=== PATIENT | male | born 1970 | race Caucasian/White ===

== ENCOUNTER 2020-03-26 09:30 | Outpatient (CLI) | payer BC ==
[2020-03-26] MEDS ORDERED: MUPIROCIN 2% CREAM 15 GM TUBE TP ONE (10:27)
[2020-03-26 11:36] LABS: BASOPHILS # (AUTO) 0.1 /CMM (0.0-0.2); BASOPHILS % (AUTO) 2.5 % (0.0-2.0); EOSINOPHILS % (AUTO) 3.3 % (0.0-6.0); HEMATOCRIT 39 % (39-51); HEMOGLOBIN 13.2 g/dL (13.5-17.5); LYMPHOCYTES # (AUTO) 1.4 /CMM (0.8-4.8); LYMPHOCYTES % (AUTO) 27.4 % (20.0-44.0); MEAN CORPUSCULAR HGB CONC 34 g/dl (31.0-36.0); MEAN CORPUSCULAR VOLUME 104 fL (80-96); MONOCYTES # (AUTO) 0.6 /CMM (0.1-1.30); MONOCYTES % (AUTO) 12.9 % (2.0-12.0); NEUTROPHILS # (AUTO) 2.7 /CMM (1.8-8.9); NEUTROPHILS % (AUTO) 53.9 % (43.0-81.0); PLATELET COUNT (AUTO) 408 /CMM (150-450); RED BLOOD CELL COUNT(AUTO) 3.78 MIL/uL (4.5-6.0)
[2020-03-26 11:46] LABS: C-REACTIVE PROTEIN 0.2 mg/dL (0.0-0.9)
[2020-03-26 15:55] LABS: ALBUMIN 4.2 g/dL (3.4-5.0)
== END 2020-03-26 23:59 | disposition home or self-care (01) ==
LOC: WOU 09:30
PROVIDERS: ATTEND Podiatrist Foot & Ankle Surgery
DX: L89.513 Pressure ulcer of right ankle, stage 3 (principal); G82.22 Paraplegia, incomplete; Z74.09 Other reduced mobility; Z79.899 Other long term (current) drug therapy
CPT/HCPCS: 11042; 36415; 73610; 73620; 82040; 85025; 85652; 86140; 87070; 87075; A6209; 87186-TC

== ENCOUNTER 2020-04-02 09:30 | Outpatient (CLI) | payer BC ==
[2020-04-02] MEDS ORDERED: GENTAMICIN 0.1% CREAM 15 GM TUBE ONE (10:16)
== END 2020-04-02 23:59 | disposition home or self-care (01) ==
LOC: WOU 09:30
PROVIDERS: ATTEND Podiatrist Foot & Ankle Surgery
DX: L89.513 Pressure ulcer of right ankle, stage 3 (principal); G82.22 Paraplegia, incomplete; Z74.09 Other reduced mobility; M21.371 Foot drop, right foot; Z79.899 Other long term (current) drug therapy
CPT/HCPCS: 11042

== ENCOUNTER 2020-04-09 09:35 | Outpatient (CLI) | payer BC | END 2020-04-09 23:59 | disposition home or self-care (01) | LOC: WOU 09:35 | PROVIDERS: ATTEND Podiatrist Foot & Ankle Surgery | DX: L89.513 Pressure ulcer of right ankle, stage 3 (principal); G82.22 Paraplegia, incomplete; M21.371 Foot drop, right foot; Z74.09 Other reduced mobility; Z79.899 Other long term (current) drug therapy | CPT/HCPCS: 11042 ==

== ENCOUNTER 2020-04-16 09:35 | Outpatient (CLI) | payer BC ==
[2020-04-16 10:51] LABS: BASOPHILS % (AUTO) 0.4 % (0.0-2.0); HEMATOCRIT 43 % (39-51); HEMOGLOBIN 14.5 g/dL (13.5-17.5); LYMPHOCYTES % (AUTO) 20.2 % (20.0-44.0); MEAN CORPUSCULAR HGB CONC 33 g/dl (31.0-36.0); MEAN CORPUSCULAR VOLUME 107 fL (80-96); MONOCYTES # (AUTO) 0.5 /CMM (0.1-1.30); MONOCYTES % (AUTO) 5.2 % (2.0-12.0); NEUTROPHILS # (AUTO) 3.5 /CMM (1.8-8.9); NEUTROPHILS % (AUTO) 36.3 % (43.0-81.0); PLATELET COUNT (AUTO) 453 /CMM (150-450); RED BLOOD CELL COUNT(AUTO) 4.05 MIL/uL (4.5-6.0); WHITE BLOOD COUNT (AUTO) 9.7 K/uL (4.3-11.0)
[2020-04-16 10:53] LABS: EOSINOPHILS % (AUTO) 37.9 % (0.0-6.0)
[2020-04-16 11:33] LABS: ALBUMIN 4.1 g/dL (3.4-5.0); CALCIUM, SERUM 8.9 mg/dL (8.5-10.1); CREATININE 0.6 mg/dL (0.6-1.3); POTASSIUM 3.8 mmol/L (3.5-5.1)
[2020-04-16 11:36] LABS: PREALBUMIN 32.2 MG/DL (18.0-35.7)
[2020-04-16 14:17] LABS: EOSINOPHILS % (MANUAL) 35 % (0-4); LYMPHOCYTES % (MANUAL) 19 % (16-48); MONOCYTES % (MANUAL) 2 % (0-11.0); NEUTROPHILS % (MANUAL) 44 (42-76)
== END 2020-04-16 23:59 | disposition home or self-care (01) ==
LOC: WOU 09:35
PROVIDERS: ATTEND Podiatrist Foot & Ankle Surgery
DX: L89.513 Pressure ulcer of right ankle, stage 3 (principal); G82.22 Paraplegia, incomplete; Z74.09 Other reduced mobility; M21.371 Foot drop, right foot; Z79.899 Other long term (current) drug therapy
CPT/HCPCS: 11042; 36415; 71045-TC; 80048-TC; 82040-TC; 84134-TC; 85025-TC; 85610-TC; 85730-TC

== ENCOUNTER 2020-04-18 13:10 | Outpatient (CLI) | payer BC | END 2020-04-18 23:59 | disposition home or self-care (01) | LOC: LAB 13:10 | PROVIDERS: ATTEND Podiatrist Foot & Ankle Surgery | DX: Z01.812 Encounter for preprocedural laboratory examination (principal); Z20.828 Contact with and (suspected) exposure to other viral communicable diseases; L89.513 Pressure ulcer of right ankle, stage 3 | CPT/HCPCS: C9803; U0003 ==

== ENCOUNTER 2020-04-23 06:38 | Day surgery (SDC) | payer BC ==
[2020-04-23] MEDS ORDERED: ANESTHESIA TRAY IN PYXIS 1 EA TRAY MC ONE (06:43)
[2020-04-23] MEDS ORDERED: MIDAZOLAM HCL 2 MG/2ML VIAL ONE (07:21)
[2020-04-23] MEDS ORDERED: FAMOTIDINE/PF INJ 20 MG/2 ML VIAL IV ONE (07:22)
[2020-04-23] MEDS ORDERED: FENTANYL PF 250MCG/5ML AMPUL ONE (07:22)
[2020-04-23] MEDS ORDERED: LIDOCAINE 1% INJ 50 ML MDV IJ ONE (07:45)
[2020-04-23] MEDS ORDERED: VANCOMYCIN 1 GM VIAL ONE (07:45)
[2020-04-23] MEDS ORDERED: BACITRACIN 50000 UNITS/VIAL ONE (07:46)
== END 2020-04-23 10:55 | disposition home or self-care (01) ==
LOC: DS 06:38
PROVIDERS: ATTEND Podiatrist Foot & Ankle Surgery
DX: T81.89XA Other complications of procedures, not elsewhere classified, initial encounter (principal); L89.513 Pressure ulcer of right ankle, stage 3; K21.9 Gastro-esophageal reflux disease without esophagitis; M21.371 Foot drop, right foot; L97.511 Non-pressure chronic ulcer of other part of right foot limited to breakdown of skin; G82.20 Paraplegia, unspecified
CPT/HCPCS: 27638; 87070; J0690; J2250; J2405; J2704; J2765; J3010; J3370; J3490 ×3; 88305-TC; 88311-TC; A6209; Q4110

== ENCOUNTER 2020-04-30 09:30 | Outpatient (CLI) | payer BC | END 2020-04-30 23:59 | disposition home or self-care (01) | LOC: WOU 09:30 | PROVIDERS: ATTEND Podiatrist Foot & Ankle Surgery | DX: Z48.817 Encounter for surgical aftercare following surgery on the skin and subcutaneous tissue (principal); G82.22 Paraplegia, incomplete; Z74.09 Other reduced mobility; M21.371 Foot drop, right foot; Z79.899 Other long term (current) drug therapy | CPT/HCPCS: G0463 ==

== ENCOUNTER 2020-05-07 09:35 | Outpatient (CLI) | payer BC | END 2020-05-07 23:59 | disposition home or self-care (01) | LOC: WOU 09:35 | PROVIDERS: ATTEND Podiatrist Foot & Ankle Surgery | DX: Z48.817 Encounter for surgical aftercare following surgery on the skin and subcutaneous tissue (principal); L03.115 Cellulitis of right lower limb; B95.2 Enterococcus as the cause of diseases classified elsewhere; G82.22 Paraplegia, incomplete; M21.371 Foot drop, right foot; Z79.899 Other long term (current) drug therapy | CPT/HCPCS: G0463 ==

== ENCOUNTER 2020-05-15 13:45 | Outpatient (CLI) | payer BC | END 2020-05-15 23:59 | disposition home or self-care (01) | LOC: WOU 13:45 | PROVIDERS: ATTEND Podiatrist Foot & Ankle Surgery | DX: L03.115 Cellulitis of right lower limb (principal); B95.2 Enterococcus as the cause of diseases classified elsewhere; G82.22 Paraplegia, incomplete; M21.371 Foot drop, right foot; Z74.09 Other reduced mobility; Z79.899 Other long term (current) drug therapy | CPT/HCPCS: G0463 ==

== ENCOUNTER 2020-05-21 10:20 | Outpatient (CLI) | payer BC | END 2020-05-21 23:59 | disposition home or self-care (01) | LOC: WOU 10:20 | PROVIDERS: ATTEND Podiatrist Foot & Ankle Surgery | DX: Z48.817 Encounter for surgical aftercare following surgery on the skin and subcutaneous tissue (principal); L03.115 Cellulitis of right lower limb; L89.513 Pressure ulcer of right ankle, stage 3; G82.22 Paraplegia, incomplete; Z74.09 Other reduced mobility; M21.371 Foot drop, right foot; Z79.899 Other long term (current) drug therapy | CPT/HCPCS: G0463 ==

== ENCOUNTER 2020-05-28 10:30 | Outpatient (CLI) | payer BC | END 2020-05-28 23:59 | disposition home or self-care (01) | LOC: WOU 10:30 | PROVIDERS: ATTEND Podiatrist Foot & Ankle Surgery | DX: Z09 Encounter for follow-up examination after completed treatment for conditions other than malignant neoplasm (principal); M21.371 Foot drop, right foot; G82.22 Paraplegia, incomplete; Z74.09 Other reduced mobility | CPT/HCPCS: G0463 ==

== ENCOUNTER 2020-06-11 10:15 | Outpatient (CLI) | payer BC ==
[2020-06-11] MEDS ORDERED: UREA 10% -AHA 4% CREAM 57 GM TUBE ONE (10:45)
== END 2020-06-11 23:59 | disposition home or self-care (01) ==
LOC: WOU 10:15
PROVIDERS: ATTEND Podiatrist Foot & Ankle Surgery
DX: Z48.817 Encounter for surgical aftercare following surgery on the skin and subcutaneous tissue (principal); G82.22 Paraplegia, incomplete; B35.3 Tinea pedis; L85.3 Xerosis cutis; M21.372 Foot drop, left foot; M21.371 Foot drop, right foot; Z79.899 Other long term (current) drug therapy
CPT/HCPCS: G0463

== ENCOUNTER 2020-07-30 09:30 | Outpatient (CLI) | payer BC | END 2020-07-30 23:59 | disposition home or self-care (01) | LOC: WOU 09:30 | PROVIDERS: ATTEND Podiatrist Foot & Ankle Surgery | DX: M21.371 Foot drop, right foot (principal); G82.22 Paraplegia, incomplete; Z74.09 Other reduced mobility; L85.3 Xerosis cutis; B35.3 Tinea pedis; Z79.899 Other long term (current) drug therapy | CPT/HCPCS: G0463 ==